=== PATIENT | female | born 1995 | race Caucasian/White ===

== ENCOUNTER 2018-10-08 20:56 | Emergency (ER) | payer OTHER ==
[2018-10-08] MEDS ORDERED: 0.9 % SODIUM CHLORIDE 1,000 ML IV ONE (21:20)
--- NOTE | 2018-10-08 21:24 | ED Physician Documentation ---
Female Urogenital Problems - HISTORIAN Historian: patient - HPI Stated Complaint: Irregular Menses Chief Complaint: Female Urogenital Problems Additional Information: Patient is a 23-year-old female who presents to the ER with c/o irregular menses. She had a light menses the end of August that lasted a couple of day- then she restarted her period this month on the and it lasted a couple of days and then got heavy with blood clots. Patient has a history of PCOS, adhesions, and cyst removals. She was on Metformin but quit taking. She is a Grav 2 Para 0 Onset: days ago Severity: mild Location of Pain: abdominal pain (cramping) - Vaginal Bleeding Compared to Menstrual Periods: passing clots : 2 Para: 0 : 2 Description of Menstrual: irregular period(s) Where was Test Done: home (Negative) Care: No Sexual History: active Contraceptive: none - Associated Symptoms Urinary Symptoms: none Discharge: denies: vaginal discharge - ROS CONST: none GI/: vomiting (x3) CVS/RESP: none EYES/ENT: none NEURO/PSYCH: none MS/SKIN/LYMPH: none - PAST HX Past History: ovarian cyst(s), spontaneous, other (PCOS) Other History: none Surgeries/Procedures: none Allergies/Adverse Reactions: Allergies Allergy/AdvReac Type Severity Reaction Status Date / Time No Known Drug Allergies Allergy Verified 10/08/18 21:20 - SOCIAL HX Smoking History: non-smoker Alcohol Use: none Drug Use: none - FAMILY HX Family History: none - VITAL SIGNS Vital Signs: Vital Signs Temp Pulse Resp BP Pulse Ox 98.2 F 74 16 137/63 99 10/08/18 20:56 10/08/18 20:56 10/08/18 20:56 10/08/18 20:56 10/08/18 20:56 - REVIEWED ASSESSMENTS Nursing Assessment Reviewed: Yes Vitals Reviewed: Yes ED Results Lab/Radiology - Lab Results Lab Results: WBC 12.4; Hgb 14.4; Hct 41.9; Platelet 318 - Orders Orders: ED Orders Category Date Time Status Place IV Lock 1T Care 10/08/18 21:20 Ordered CBC/PLATELET/DIFF Routine Lab 10/08/18 Ordered CMP Routine Lab 10/08/18 Ordered SERUM HCG Stat Lab 10/08/18 Ordered NORMAL SALINE @ 1000 MLS/HR ( 1000ml BOLUS) Med 10/08/18 21:20 Ordered 0.9 % Sodium Chloride [Normal Saline] 1,000 ml IV Q1H Female Urogenital Problems - EXAM General Appearance: no acute distress, alert EENT: eye inspection normal, ENT inspection normal, no signs of dehydration, DIEGO Neck: nml inspection Respiratory: breath sounds nml CVS: heart sounds normal Abdomen: soft, non-tender, no distention, nml bowel sounds Back: non-tender Skin: color nml, no rash, warm,dry Extremities: non-tender, normal range of motion Neuro: oriented X3, CN's nml as tested, motor nml, sensation nml, mood/affect nml, cognition normal Discharge Clincal Impression: Dysfunctional uterine bleeding Referrals: Miguel A Duffy MD [Primary Care Provider] - 2 Days Additional Instructions: Increase water intake No aspirin or Ibuprofen (can increase bleeding) Follow up with Occupational Therapy Director to monitor PCOS (referral sent for patient) Condition: Good Disposition: 01 HOME, SELF-CARE Decision to Admit: NO Decision Time: 12:49
[2018-10-08 22:52] VITALS: BP 128/76
[2018-10-09 07:10] LABS: BASOPHILS % 0.6 % (0.0-1.5); NEUTROPHILS # 8.2 # k/uL (1.4-7.7)
[2018-10-09 07:11] LABS: eGFR (Non-African) > 60
== END 2018-10-08 22:51 | disposition home or self-care (01) ==
LOC: ED 20:56
DX: N93.8 Other specified abnormal uterine and vaginal bleeding (principal)
CPT/HCPCS: 80053; 84703; 85025; 96360; 99284; S1016